=== PATIENT | female | born 1990 | race Two or more races ===

== ENCOUNTER 2019-10-29 17:21 | Emergency (ER) | payer OTHER ==
[~2019-10-29] VITALS: Ht 152.4 cm; Wt 49.4 kg
[2019-10-29 17:50] VITALS: BP 103/70
--- NOTE | 2019-10-29 18:15 | NUR ---
Examined by ER Provider with RN (marketing copywriter) in attendance
--- NOTE | 2019-10-29 18:40 | NUR ---
Patient discharged to home in stable condition. Written and verbal after care instructions given. Patient verbalizes understanding of instruction.
== END 2019-10-29 18:42 | disposition home or self-care (01) ==
LOC: ER 17:24
DX: N60.02 Solitary cyst of left breast (principal)
CPT/HCPCS: 76642-LT-TC